=== PATIENT | male | born 1955 | race Caucasian/White ===

== ENCOUNTER 2023-04-22 10:22 | Inpatient (IN) | payer BC, OTHER ==
[~2023-04-22] VITALS: Ht 172.7 cm; Wt 111.1 kg
[2023-04-22 10:47] VITALS: BP_SYST 146; PULSE 64; RESP 18; TEMP 98; O2SAT 97
[2023-04-22 11:21] LABS: BASOPHILS # (AUTO) 0.1 K/uL (0.0-0.2); BASOPHILS % (AUTO) 0.5 % (0.0-2.0); EOSINOPHILS # (AUTO) 0.1 K/uL (0.0-0.4); EOSINOPHILS % (AUTO) 0.9 % (0.0-4.0); HEMATOCRIT 46.5 % (36-54); HEMOGLOBIN 15.3 g/dL (14.0-18.0); LYMPHOCYTES # (AUTO) 1.6 K/uL (1.0-5.5); LYMPHOCYTES % (AUTO) 12.2 % (20.5-51.5); MEAN CORPUSCULAR HEMOGLOBIN 31 pg (27-31); MEAN CORPUSCULAR HGB CONC 33 % (32-36); MEAN CORPUSCULAR VOLUME 95 fL (79.0-98.0); MONOCYTES # (AUTO) 1.1 K/uL (0.0-1.0); MONOCYTES % (AUTO) 8.3 % (1.7-9.3); NEUTROPHILS # (AUTO) 10.2 K/uL (1.8-7.7); NEUTROPHILS % (AUTO) 78.1 % (40.0-70.0); PLATELET COUNT (AUTO) 215 K/uL (130-430); RED BLOOD CELL COUNT(AUTO) 4.87 MIL/uL (4.2-6.2); RED CELL DISTRIBUTION WIDTH 13.4 % (9.0-15.0)
[2023-04-22 11:35] LABS: ANION GAP 7 (5-15); CALCIUM 9.1 mg/dL (8.4-11.0); CARBON DIOXIDE 29 mmol/L (23-29); CHLORIDE 101 mmol/L (98-107); CREATININE 0.92 mg/dL (0.55-1.30); GFR AFRICAN AMERICAN 106 mL/min (>90); GLUCOSE 144 mg/dL (74-106); POTASSIUM 4.1 mmol/L (3.5-5.1); SODIUM SERUM 137 mmol/L (136-145); UREA NITROGEN, BLOOD 16 mg/dL (8-21)
[2023-04-22 11:38] LABS: INR 1.1 (0.80-1.20); PROTHROMBIN TIME 11.4 SECS (9.5-12.5)
[2023-04-22 11:46] LABS: GFR NON AFRICAN-AMERICAN 87 mL/min (>90)
[2023-04-22 11:56] LABS: ALANINE AMINOTRANSFERASE 51 U/L (12-78); ALBUMIN 3.4 g/dL (3.4-4.8); ASPARTATE AMINOTRANSFERASE 21 U/L (10-37); CREATINE KINASE, TOTAL 65 U/L (39-308); PHOSPHORUS 3.1 mg/dL (2.7-4.5); TOTAL BILIRUBIN 0.9 mg/dL (0.0-1.0); TOTAL PROTEIN, SERUM 7.5 g/dL (6.4-8.3)
[2023-04-22] MEDS ORDERED: ACETAMINOPHEN 500 MG TABLET PO ONE (12:15)
[2023-04-22] MEDS ORDERED: IBUPROFEN 800 MG TABLET PO ONE (12:15)
[2023-04-22] MEDS ORDERED: ASPIRIN 325 MG TABLET PO ONE (12:30)
[2023-04-22] MEDS ORDERED: *LOVENOX 1MG/KG Q24H/PHARMACY XX ONE (12:45)
[2023-04-22] MEDS ORDERED: LIP20 PO (13:01)
[2023-04-22] MEDS ORDERED: HYDR25TA4 PO (13:01)
[2023-04-22] MEDS ORDERED: NOR10 PO (13:01)
[2023-04-22] MEDS ORDERED: VALS320T2 PO (13:01)
[2023-04-22 14:51] VITALS: BP_SYST 143; PULSE 56; RESP 19; TEMP 97.7; O2SAT 97
[2023-04-22 15:05] VITALS: BP_SYST 143; PULSE 56; RESP 19; TEMP 97.7
[2023-04-22] MEDS ORDERED: ACETAMINOPHEN 325 MG TABLET PO PRN ×2 (18:45)
[2023-04-22] MEDS ORDERED: HYDROcodone/ACETAMIN 5-325 MG TAB (NORCO/ VICODIN) PO PRN (18:45)
[2023-04-22] MEDS ORDERED: HYDROcodone/ACETAMIN 10-325 MG TAB PO PRN (18:45)
[2023-04-22] MEDS ORDERED: LORazepam 2 MG/ML VIAL IVP PRN (18:45)
[2023-04-22] MEDS ORDERED: NALOXONE HCL 0.4 MG/ML AMP (NARCAN) IVP PRN ×2 (18:45)
[2023-04-22] MEDS ORDERED: ONDANSETRON HCL 4 MG/2 ML VIAL IVP PRN (18:45)
[2023-04-22 19:00] VITALS: BP_SYST 125; PULSE 53; RESP 16; TEMP 98.1; O2SAT 98
[2023-04-22 20:00] VITALS: BP_SYST 125; PULSE 53; RESP 16; TEMP 98.1; O2SAT 98
[2023-04-22] MEDS ORDERED: ATORVASTATIN 20 MG TABLET PO SCH (21:00)
[2023-04-22] MEDS: NORMAL SALINE 5 ML DISP.SYRIN IVF SCH (21:01)
[2023-04-23] MEDS: NORMAL SALINE 5 ML DISP.SYRIN IVF SCH ×2 (05:29→13:13)
[2023-04-23 07:10] LABS: BASOPHILS # (AUTO) 0.1 K/uL (0.0-0.2); BASOPHILS % (AUTO) 0.6 % (0.0-2.0); EOSINOPHILS # (AUTO) 0.2 K/uL (0.0-0.4); EOSINOPHILS % (AUTO) 1.9 % (0.0-4.0); HEMATOCRIT 46.7 % (36-54); HEMOGLOBIN 15.4 g/dL (14.0-18.0); LYMPHOCYTES # (AUTO) 1.6 K/uL (1.0-5.5); LYMPHOCYTES % (AUTO) 14.5 % (20.5-51.5); MEAN CORPUSCULAR HEMOGLOBIN 31 pg (27-31); MEAN CORPUSCULAR HGB CONC 33 % (32-36); MEAN CORPUSCULAR VOLUME 95 fL (79.0-98.0); MONOCYTES # (AUTO) 1.1 K/uL (0.0-1.0); MONOCYTES % (AUTO) 9.8 % (1.7-9.3); NEUTROPHILS # (AUTO) 8.2 K/uL (1.8-7.7); NEUTROPHILS % (AUTO) 73.2 % (40.0-70.0); PLATELET COUNT (AUTO) 226 K/uL (130-430); RED BLOOD CELL COUNT(AUTO) 4.94 MIL/uL (4.2-6.2); WHITE BLOOD COUNT (AUTO) 11.2 K/uL (4.8-10.8)
[2023-04-23 07:53] VITALS: BP_SYST 129; PULSE 53; RESP 16; TEMP 98.2; O2SAT 96
[2023-04-23 08:07] LABS: CALCIUM 8.9 mg/dL (8.4-11.0); CREATININE 0.82 mg/dL (0.55-1.30); PHOSPHORUS 4.1 mg/dL (2.7-4.5); POTASSIUM 4.2 mmol/L (3.5-5.1)
[2023-04-23] MEDS ORDERED: LOSARTAN POTASSIUM 50 MG TABLET (COZAAR) PO SCH (09:00)
[2023-04-23] MEDS ORDERED: HYDROCHLOROTHIAZIDE 25 MG TABLET (HCTZ) PO SCH (09:00)
[2023-04-23] MEDS ORDERED: VALSARTAN Non-Formulary 160 MG TABLET PO SCH (09:00)
[2023-04-23] MEDS ORDERED: amLODIPine BESYLATE 10 MG TABLET PO SCH (09:00)
[2023-04-23 12:37] VITALS: BP_SYST 124; PULSE 55; RESP 18; TEMP 97.3; O2SAT 95
[2023-04-23 16:00] VITALS: BP_SYST 118; PULSE 52; RESP 16; TEMP 98.2
[2023-04-23 19:53] VITALS: BP_SYST 129; PULSE 58; RESP 17; TEMP 98.9; O2SAT 97
[2023-04-23 20:00] VITALS: BP_SYST 129; PULSE 58; RESP 18; TEMP 98.9; O2SAT 97
== END 2023-04-23 20:30 | disposition home or self-care (01) | DRG 282 ==
LOC: SED 10:22 → STU 12:49
PROVIDERS: ADMIT Preventive Medicine Preventive Medicine/Occupational Environmental Medicine; ATTEND Preventive Medicine Preventive Medicine/Occupational Environmental Medicine
DX: R07.9 Chest pain, unspecified (principal); I21.A1 Myocardial infarction type 2; I10 Essential (primary) hypertension; D72.829 Elevated white blood cell count, unspecified; R73.9 Hyperglycemia, unspecified; R00.1 Bradycardia, unspecified; Z88.0 Allergy status to penicillin; Z79.899 Other long term (current) drug therapy
CPT/HCPCS: 36415; 71045; 80048; 80053; 82550; 83735; 84100; 84484; 85025; 85379; 85610-TC; 85730-TC; 93005; 93306; 99285; G0378